=== PATIENT | male | born 1945 | race Caucasian/White ===

== ENCOUNTER 2018-07-18 06:08 | Day surgery (SDC) | payer MEDICARE, OTHER ==
[~2018-07-18] VITALS: Ht 175.3 cm; Wt 100.0 kg
[~2018-07-18 06:08] MED LIST: AMLO10 PO; ASPI81CH PO; CARV25 PO; CLOP75 PO; NITR.4SL SL; Protonix40 MG PO; SIMV40 PO; ZESTORETIC 20-121 EA PO
[2018-07-18 06:29] LABS: BASOPHILS ABSOLUTE AUTO 0.05 K/mm3 (0.00-0.23); BASOPHILS PERCENT AUTO 1 % (0-2); EOSINOPHILS ABSOLUTE AUTO 0.18 K/mm3 (0.00-0.68); EOSINOPHILS PERCENT AUTO 2 % (0-6); Hematocrit 42.8 % (37.0-53.0); Hemoglobin 14.2 g/dL (13.5-17.5); IMMATURE GRAN ABSOLUTE AUTO 0.13 K/mm3 (0.00-0.10); IMMATURE GRAN PERCENT AUTO 1 % (0-1); LYMPHOCYTES ABSOLUTE AUTO 2.28 K/mm3 (0.84-5.20); LYMPHOCYTES PERCENT AUTO 23 % (21-46); MONOCYTES ABSOLUTE AUTO 0.63 K/mm3 (0.16-1.47); MONOCYTES PERCENT AUTO 6 % (4-13); Mean Corpuscular HGB 30.7 pg (26.0-34.0); Mean Corpuscular HGB Conc 33.2 g/dL (31.5-36.5); Mean Corpuscular Volume 93 fL (80-100); Mean Platelet Volume 10.5 fL (9.1-12.4); NEUTROPHILS ABSOLUTE AUTO 6.79 K/mm3 (1.96-9.15); NEUTROPHILS PERCENT AUTO 67 % (41-73); Platelet Count 189 K/mm3 (150-400); RDW Coefficient Variation 12.4 % (11.7-14.2); RDW Standard Deviation 42.4 fL (35.1-46.3); Red Blood Cell Count 4.62 M/mm3 (4.30-5.90); White Blood Cell Count 10.06 K/mm3 (4.00-11.30)
[2018-07-18 06:45] LABS: International Normalized Ratio 1.03; Prothrombin Time Results 10.9 Sec (9.7-11.5)
[2018-07-18 06:49] LABS: Calcium, Blood 9.5 mg/dL (8.5-10.1); Creatinine, Blood 1.35 mg/dL (0.60-1.20); Potassium, Blood 4.1 mmol/L (3.5-5.5)
[2018-07-18] MEDS ORDERED: Metformin HCl850 MG PO (06:52)
--- NOTE | 2018-07-18 11:06 | NUR ---
PT VERBALIZED UNDERSTANDING OF D/C INSTRUCTIONS. TR BAND REMOVED FROM RIGHT WRIST RED CLOTH DOT DRESSING INTACT. ARM BOARD SUPPORT ON RIGHT ARM. PAPERWORK PROVIDED TO PATIENT IN [facility]. IV REMOVED FROM LFA WITH CATH INTACT, PRESSURE DRESSING APPLIED. PT GETS DRESSED WITH LIMITED ASSISTANCE. PT'S CALLED FOR RIDE HOME. PT DENIES NEED FOR W/C OUT TO VEHICLE, AMBULATED WITH STEADY GAIT. NADN AT TIME OF DISPO. VSS. PT ENCOURAGED TO FOLLOW UP WITH DR. MCALLISTER AND VASCULAR SURGEON AT [facility].
== END 2018-07-18 10:45 | disposition home or self-care (01) ==
LOC: MHTC 06:08
PROVIDERS: Internal Medicine Cardiovascular Disease
DX: I25.10 Atherosclerotic heart disease of native coronary artery without angina pectoris (principal); T82.855A Stenosis of coronary artery stent, initial encounter; E11.9 Type 2 diabetes mellitus without complications; I10 Essential (primary) hypertension; Z79.02 Long term (current) use of antithrombotics/antiplatelets; Z79.899 Other long term (current) drug therapy; Z79.82 Long term (current) use of aspirin
CPT/HCPCS: 36415; 80048; 85025; 85610; 93458; 99152; 99153; C1769; C1894; J1644; J2250; J3010; J7030; J7040; Q9967

== ENCOUNTER 2018-09-02 09:38 | Emergency (ER) | payer MEDICARE, OTHER ==
[~2018-09-02] VITALS: Ht 177.8 cm; Wt 92.1 kg
[~2018-09-02 09:38] MED LIST changes: +Metformin HCl850 MG PO
[2018-09-02] MEDS ORDERED: METO50 PO (10:09)
[2018-09-02] MEDS ORDERED: PANT40 PO (10:09)
[2018-09-02] MEDS ORDERED: Aspirin EC81 MG PO (10:09)
[2018-09-02] MEDS ORDERED: TAMS.4ER PO (10:10)
[2018-09-02] MEDS ORDERED: ZESTORETIC 20-121 EA PO (10:10)
[2018-09-02] MEDS ORDERED: SIMV40 PO (10:10)
[2018-09-02] MEDS ORDERED: OXYC5 PO (10:10)
[2018-09-02] MEDS ORDERED: ONDA4ODT MM (10:15)
[2018-09-02] MEDS ORDERED: Robaxin-750750 MG PO (10:15)
== END 2018-09-02 10:30 | disposition home or self-care (01) ==
LOC: ER 09:38
DX: S16.1XXA Strain of muscle, fascia and tendon at neck level, initial encounter (principal); S39.012A Strain of muscle, fascia and tendon of lower back, initial encounter; X58.XXXA Exposure to other specified factors, initial encounter; Z79.82 Long term (current) use of aspirin; Z79.899 Other long term (current) drug therapy
CPT/HCPCS: 99283

== ENCOUNTER → 2021-04-01 | Outpatient (CLI) | payer MEDICARE ==
[~2021-04-01] MED LIST changes: +Aspirin EC81 MG PO; +METO50 PO; +ONDA4ODT MM; +OXYC5 PO; +PANT40 PO; +Robaxin-750750 MG PO; +TAMS.4ER PO
[2021-04-03 09:46] LABS: Stool Occult Bld Immuno 1 Negative (NEGATIVE)
== END | disposition home or self-care (01) ==
LOC: LAB SHORT 15:00
PROVIDERS: Student in an Organized Health Care Education/Training Program
DX: Z12.11 Encounter for screening for malignant neoplasm of colon (principal)
CPT/HCPCS: G0328

== ENCOUNTER 2022-05-19 06:39 | Day surgery (SDC) | payer MEDICARE ==
[~2022-05-19] VITALS: Ht 175.3 cm; Wt 93.6 kg
[~2022-05-19 06:39] MED LIST changes: +Glucophage 850850 MG PO; -Metformin HCl850 MG PO
--- NOTE | 2022-05-19 19:14 | NUR ---
SHIFT SUMMARY PT HAS STRUGGLED w/ PAIN MANAGEMENT. BUT STILL WORKED w/ THERAPY & UP IN HALLWAY. EATING, DRINKING, & VOIDING.
[2022-05-20 05:24] LABS: BASOPHILS ABSOLUTE AUTO 0.01 K/mm3 (0.00-0.23); BASOPHILS PERCENT AUTO 0 % (0-2); EOSINOPHILS PERCENT AUTO 0 % (0-6); Hemoglobin 12.6 g/dL (13.5-17.5); IMMATURE GRAN ABSOLUTE AUTO 0.13 K/mm3 (0.00-0.10); IMMATURE GRAN PERCENT AUTO 1 % (0-1); LYMPHOCYTES ABSOLUTE AUTO 0.81 K/mm3 (0.84-5.20); LYMPHOCYTES PERCENT AUTO 5 % (21-46); MONOCYTES ABSOLUTE AUTO 0.93 K/mm3 (0.16-1.47); MONOCYTES PERCENT AUTO 6 % (4-13); Mean Corpuscular HGB 30.1 pg (26.0-34.0); Mean Corpuscular HGB Conc 34.1 g/dL (31.5-36.5); Mean Corpuscular Volume 88 fL (80-100); Mean Platelet Volume 11.4 fL (9.1-12.4); NEUTROPHILS ABSOLUTE AUTO 14.69 K/mm3 (1.96-9.15); NEUTROPHILS PERCENT AUTO 89 % (41-73); Platelet Count 175 K/mm3 (150-400); RDW Coefficient Variation 12.7 % (11.7-14.2); RDW Standard Deviation 40.9 fL (35.1-46.3); Red Blood Cell Count 4.19 M/mm3 (4.30-5.90); White Blood Cell Count 16.57 K/mm3 (4.00-11.30)
--- NOTE | 2022-05-20 05:24 | NUR ---
SHIFT SUMMARY: A&OX4. VERY PLEASANT. PODx1 R TKA. AMB USING FWW AND GAIT BELT. TOLERATING WELL. EATING, DRINKING, AND VOIDING. PAIN WELL MANAGED T/O SHIFT WITH SCHEDULED TORADOL, TYLENOL, AND OXYCODONE 10 MG. X1 AQUACEL REMAINS IN PLACE, C/D/I AT THIS TIME. RESTING AT THIS TIME, CALL LIGHT IN REACH. WILL GIVE REPORT TO DAY TIME RN.
[2022-05-20 06:05] LABS: Bun/Creatinine Ratio 18.4 (12.0-20.0); Calcium, Blood 8.8 mg/dL (8.5-10.1); Creatinine, Blood 1.96 mg/dL (0.60-1.20); Magnesium, Blood 2.2 mg/dL (1.6-2.4); Potassium, Blood 4.2 mmol/L (3.5-5.5)
[2022-05-20] MEDS ORDERED: Percocet 5-3251 EACH PO (08:37)
--- NOTE | 2022-05-20 11:19 | NUR ---
DISCHARGE NOTE: PATIENT WAS EDUCATED WITH DISCHARGE INSTRUCTIONS. HE VERBALIZED UNDERSTANDING OF INSTRUCTIONS AND HAD NO FURTHER QUESTIONS. IV WAS TAKEN OUT AND WNL. PAIN IS MANAGED WITH ORAL PAIN MEDICATIONS. HARD PERSCRIPTION WAS PLACED IN DISCHARGE INSTRUCTIONS FOLDER. HE IS TOLERATING PO INTAKE AND IS VOIDING. HIS RIGHT KNEE HAS AN AQUACEL THAT IS C/D/I. DENIES NUMBNESS OR TINGLING. CAN MOVE ALL FINGERS AND TOES. HE IS DRESSED AND HAS PERSONAL ITEMS IN THE ROOM GATHERED. HE WAS WHEELCHAIRED DOWN TO HIS WIFES CAR TO BE TAKEN HOME.
== END 2022-05-20 11:10 | disposition home or self-care (01) ==
LOC: ORSCMMR 06:39 → ORD 08:15 → ORSCMMR 08:15 → SURS 12:55 → ORSCMMR 05-20 11:10
PROVIDERS: Orthopaedic Surgery
PROC: 0SRC0JA Replacement of Right Knee Joint with Synthetic Substitute, Uncemented, Open Approach (ICD-10-PCS; principal; 2022-05-20)
DX: M17.11 Unilateral primary osteoarthritis, right knee (principal); I10 Essential (primary) hypertension; E66.9 Obesity, unspecified; Z68.30 Body mass index [BMI] 30.0-30.9, adult; E11.9 Type 2 diabetes mellitus without complications; I25.10 Atherosclerotic heart disease of native coronary artery without angina pectoris; E78.5 Hyperlipidemia, unspecified; Z85.118 Personal history of other malignant neoplasm of bronchus and lung; Z79.82 Long term (current) use of aspirin; Z79.899 Other long term (current) drug therapy
CPT/HCPCS: 36415; 73560-RT; 80048; 82947; 83735; 85025; 97110; 97116; 97162; A9270; C1776; J0171; J0690; J0735; J1100; J1170; J1885; J2250; J2370; J2405; J2704; J2795; J3370; J7120

== ENCOUNTER 2022-07-28 06:31 | Day surgery (SDC) | payer MEDICARE ==
[~2022-07-28] VITALS: Ht 177.8 cm; Wt 89.5 kg
[~2022-07-28 06:31] MED LIST changes: +Percocet 5-3251 EACH PO
--- NOTE | 2022-07-28 07:31 | NUR ---
Ambulatory in Day Surgery WITH CANE. History, Chart, Medications and Allergies reviewed before start of procedure. Lungs clear T/O to Auscultation. Patient confirms NPO status and agrees with scheduled surgery. Discharged via wheelchair to private car for ride home WITH .
[2022-07-28] MEDS ORDERED: GLIP5 PO (07:38)
--- NOTE | 2022-07-28 09:24 | NUR ---
Discharge instructions reviewed with patient. Patient verbalizes understanding. Copy given to patient to take home. ICE PACK PROVIDED, PLACED UNDER RIGHT KNEE. Discharged via wheelchair to private car for ride home.
== END 2022-07-28 09:05 | disposition home or self-care (01) ==
LOC: ORSCMMR 06:31 → ORD 08:00 → ORSCMMR 09:05
PROVIDERS: Orthopaedic Surgery
PROC: 0SSCXZZ Reposition Right Knee Joint, External Approach (ICD-10-PCS; principal; 2022-07-28 08:00)
DX: M24.661 Ankylosis, right knee (principal); I10 Essential (primary) hypertension; E11.9 Type 2 diabetes mellitus without complications; E78.5 Hyperlipidemia, unspecified; Z79.4 Long term (current) use of insulin; Z79.84 Long term (current) use of oral hypoglycemic drugs; Z79.899 Other long term (current) drug therapy
CPT/HCPCS: 82947; A9270; J2704; J3010; J7120

== ENCOUNTER 2023-04-09 17:50 | Emergency (ER) | payer MEDICARE ==
[~2023-04-09] VITALS: Ht 172.7 cm; Wt 77.1 kg
[~2023-04-09 17:50] MED LIST changes: +GLIP5 PO
[2023-04-09 18:38] LABS: Hematocrit 41.8 % (37.0-53.0); Hemoglobin 14.1 g/dL (13.5-17.5); Mean Corpuscular HGB 29.4 pg (26.0-34.0); Mean Corpuscular HGB Conc 33.7 g/dL (31.5-36.5); Mean Corpuscular Volume 87 fL (80-100); Mean Platelet Volume 10.8 fL (9.1-12.4); Platelet Count 229 K/mm3 (150-400); RDW Coefficient Variation 13.2 % (11.7-14.2); RDW Standard Deviation 42.5 fL (35.1-46.3); Red Blood Cell Count 4.79 M/mm3 (4.30-5.90); White Blood Cell Count 7.64 K/mm3 (4.00-11.30)
[2023-04-09 18:56] LABS: Albumin, Blood 3.3 g/dL (3.4-5.0); Albumin/Globulin Ratio 0.7 (0.8-1.8); Bilirubin, Total 0.7 mg/dL (0.1-1.0); Bun/Creatinine Ratio 18.1 (12.0-20.0); Calcium, Blood 9.5 mg/dL (8.5-10.1); Creatinine, Blood 1.38 mg/dL (0.60-1.20); Globulin, Blood 4.7 g/dL (2.2-4.0); Potassium, Blood 4.3 mmol/L (3.5-5.5)
[2023-04-09 19:02] LABS: BAND PERCENT MAN 1 % (0-8); BASOPHILS PERCENT MAN 0 % (0-2); EOSINOPHILS ABSOLUTE MAN 0.15 K/mm3 (0.00-0.68); EOSINOPHILS PERCENT MAN 2 % (0-6); LYMPHOCYTES % ATYPICAL MANUAL 1 % (0-0); LYMPHOCYTES ABSOLUTE MAN 0.68 K/mm3 (0.84-5.20); LYMPHOCYTES PERCENT MAN 8 % (21-46); METAMYELOCYTE ABSOLUTE MAN 0.07 K/mm3 (0.00-0.00); METAMYELOCYTE PERCENT MAN 1 % (0-0); MONOCYTES ABSOLUTE MAN 0.22 K/mm3 (0.16-1.47); MONOCYTES PERCENT MAN 3 % (4-13); MYELOCYTE ABSOLUTE MAN 0.22 K/mm3 (0.00-0.00); MYELOCYTE PERCENT MAN 3 % (0-0); NEUTROPHILS ABSOLUTE MAN 6.26 K/mm3 (1.96-9.15); SEG NEUTROPHILS PERCENT MAN 81 % (41-73); TOTAL CELLS COUNTED 100
[2023-04-09 19:59] LABS: Source, Urine Clean Catch
[2023-04-09 20:02] LABS: Bilirubin, Urine Neg (Neg); Blood, Urine Neg (Neg); Glucose Qualitative, Urine 3+ (Neg); Ketones, Urine 1+ (Neg); Leukocyte Esterase, Urine Neg (Neg); Nitrite, Urine Neg (Neg); Protein, Urine 3+ (Neg); Urobilinogen, Urine NORM (Normal)
[2023-04-09 20:08] LABS: Appearance, Urine Clear (Clear); Color, Urine Yellow (P-Yellow)
[2023-04-09 20:09] LABS: Bacteria Rare /hpf; Hyaline Casts 0-2 /lpf (0-2); Mucus Light (0-Heavy); Red Blood Cells, Urine Not Seen /hpf (0-2); Squamous Epithelial Cells Not Seen /hpf (Few); White Blood Cells, Urine 0-2 /hpf (0-5)
[2023-04-09] MEDS ORDERED: DOXY100 PO (22:19)
[2023-04-09] MEDS ORDERED: BENZ100A PO (22:50)
[2023-04-09] MEDS ORDERED: ONDA4ODT MM (22:50)
[2023-04-09 22:51] VITALS: BP 153/82
== END 2023-04-09 22:59 | disposition home or self-care (01) ==
LOC: ER 17:50
PROVIDERS: Student in an Organized Health Care Education/Training Program
DX: J18.9 Pneumonia, unspecified organism (principal); R11.10 Vomiting, unspecified; I25.10 Atherosclerotic heart disease of native coronary artery without angina pectoris; Z88.5 Allergy status to narcotic agent; Z79.899 Other long term (current) drug therapy; Z95.1 Presence of aortocoronary bypass graft
CPT/HCPCS: 71046; 80053; 81001; 83690; 85025; 93005; 93010; 96374; 99284-25; A9270; J2405